=== PATIENT | female | born 1960 | race Two or more races ===

== ENCOUNTER 2017-12-22 12:52 | Outpatient (AMBR) | payer MEDICAID, SELFPAY ==
--- NOTE | 2017-12-22 13:22 | PT.ODAYNRPT ---
PT Outpatient Daily Note Date of Service: December 22, 2017 OP Daily Note Visit Reasons: shoulder pain 2 Outpatient Physical Therapy Treatment Date: 12/22/17 Subjective: Pt's shoulder feels better. Pt notice that she can reach higher overhead. Pt still notice weakness in the shoulder. Pt will like to continue PT to get her shoulder stronger. Objective: Please see flow chart for list of ther ex performed Assessment: improved shoulder AROM, however, still demonstrate weakness within the rotator cuff musculatures leading to difficulty with multiple reps in shoulder flexion and abduction. Pt will continue to benefit from physical therapy. Plan: Continue with PT Length of Time (minutes) of Treatment: 30 Minutes Office Procedures PT Procedures PT Date of Service: 12/22/17 Therapeutic Exercise 30 minutes: Yes
== END 2017-12-23 23:59 ==
LOC: HODPTST 13:34
PROVIDERS: PCP Family Medicine; Referring Provider Family Medicine; Visit Provider Orthopaedic Surgery
DX: M25.511 Pain in right shoulder (principal)
CPT/HCPCS: 97110

== ENCOUNTER 2018-01-06 11:30 | Outpatient (AMBR) | payer MEDICAID, SELFPAY ==
--- NOTE | 2017-12-27 14:28 | PT.ODAYNRPT ---
PT Outpatient Daily Note Date of Service: December 27, 2017 OP Daily Note Visit Reasons: right shoulder Outpatient Physical Therapy Treatment Date: 12/27/17 Subjective: Pt's shoulder feels better. Pt has been able to cook and perform self care with less limitation. Objective: Please see flow chart for list of the ex performed Assessment: tolerate exercises with minimal pain; continue to improve with AROM and less difficulty with added resistance. Plan: Continue with PT Length of Time (minutes) of Treatment: 30 Minutes Office Procedures PT Procedures PT Date of Service: 12/27/17 Therapeutic Exercise 30 minutes: Yes
--- NOTE | 2018-01-06 12:01 | PT.ODS1RPT ---
PT OP Progress/Discharge Note Date of Service: January 06, 2018 Progress Note/DC Note Progress Note/Discharge Note: Progress Note Patient Information Visit Reasons: right shoulder Medical Diagnosis: M75.10 Treatment Dx #1: Right Shoulder Mobility Deficits Treatment Dx #2: Right Shoulder Weakness Service Continue Service or Discharge: Continue Service Certification Date Certification Dates: 01/06/18 to 04/08/18 Status Subjective: Pt mention that her shoulder is doing much better. Pt has been able to reach behind her back, tie her hair, perform self care, and cook with less limitation. Pt still notice shoulder weakness but her movement is much better after the manipulation. Pt will like to continue physical therapy to get her arm stronger. 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 Pt still has difficulty initiating abduction and flexion AROM past shoulder height due to rotator cuff weakness. Pt's overall alternative dispute resolution mediator strength is also improvement these past few weeks allowing her to start light lifting at home with less restriction. Pt has not met set goals yet and will continue to benefit from physical therapy to increase strength, mobility, and work on functional tasks. Plan: Continue with POC/PT and add 12 sessions (2 x wk for 4 wks) Office Procedures PT Procedures PT Date of Service: 12/27/17 Therapeutic Exercise 30 minutes: Yes PT Procedures PT Date of Service: 01/06/18 Therapeutic Exercise 30 minutes: Yes
--- NOTE | 2018-01-06 12:09 | PTNOTE_ITS ---
PT OP Progress/Discharge Note Date of Service: January 06, 2018 Progress Note/DC Note Progress Note/Discharge Note: Progress Note Patient Information Visit Reasons: right shoulder Medical Diagnosis: M75.10 Treatment Dx #1: Right Shoulder Mobility Deficits Treatment Dx #2: Right Shoulder Weakness Service Continue Service or Discharge: Continue Service Certification Date Certification Dates: 01/06/18 to 04/08/18 Status Subjective: Pt mention that her shoulder is doing much better. Pt has been able to reach behind her back, tie her hair, perform self care, and cook with less limitation. Pt still notice shoulder weakness but her movement is much better after the manipulation. Pt will like to continue physical therapy to get her arm stronger. Objective: Right Shoulder AROM Flexion: 158 deg Abduction: 130 deg ER: 65 deg IR: 60 deg Right Shoulder MMTs Flexors: 3/5 Abductors: 3-/5 Internal Rotators: 3+/5 External Rotators: 3/5 HBB: Thumb at T8 Felt Hanger Strength- L: 85 lbs R: 79 lbs Assessment: Pt demonstrate improvement with shoulder mobility and strength allowing her to resume some ADLs, chores, and self care activities with less limitation. Pt still has difficulty initiating abduction and flexion AROM past shoulder height due to rotator cuff weakness. Pt's overall hand ii cutter strength is also improvement these past few weeks allowing her to start light lifting at home with less restriction. Pt has not met set goals yet and will continue to benefit from physical therapy to increase strength, mobility, and work on functional tasks. Plan: Continue with POC/PT and add 12 sessions (2 x wk for 4 wks) Office Procedures PT Procedures PT Date of Service: 12/27/17 Therapeutic Exercise 30 minutes: Yes PT Procedures PT Date of Service: 01/06/18 Therapeutic Exercise 30 minutes: Yes
== END 2018-01-22 23:59 ==
PROVIDERS: PCP Family Medicine; Referring Provider Family Medicine; Visit Provider Orthopaedic Surgery
DX: I10 Essential (primary) hypertension (principal)
CPT/HCPCS: 97110

== ENCOUNTER 2024-10-13 11:22 | Emergency (ER) | payer MEDICAID, SELFPAY ==
[2024-10-13 12:01] VITALS: BP 135/74; PULSE 53; RESP 18; TEMP 36.9; O2SAT 96; BMI 32.1
--- NOTE | 2024-10-13 12:11 | PD.EDRME ---
Rapid Medical Screening Exam RME Arrival date/time: 10/13/24 11:22 This is a 64-year-old female presents to the emergency department with complaints of right lower quadrant abdominal pain x 1 day. +nausea I have greeted and performed a focused initial assessment of this patient. Initial appropriate labs ordered at this time. A comprehensive ED assessment and evaluation of the patient and analysis of all test and completion of medical decision making process will be conducted by additional ED provider. Chief Complaint: Abdominal Pain Time Seen by Provider: 10/13/24 11:41 Vital signs: Vital Signs Temperature 98.5 F 10/13/24 12:01 Pulse Rate 53 L 10/13/24 12:01 Respiratory Rate 18 10/13/24 12:01 Blood Pressure 135/74 H 10/13/24 12:01 Pulse Oximetry (%) 96 10/13/24 12:01 Oxygen Delivery Method Room Air 10/13/24 12:01
[2024-10-13 12:37] LABS: Basophils % (Auto) 0 % (0-2.5); Eosinophils # (Auto) 0.3 Thou/mm3 (0.0-0.5); Eosinophils % (Auto) 4 % (0-10); Hematocrit 42.2 % (36.0-46.0); Immature Granulocytes % (Auto) 1 % (0-0); Immature Granulocytes Auto 0.04 Thou/mm3 (0.00-0.00); Lymphocytes # (Auto) 1.2 Thou/mm3 (1.0-4.8); Lymphocytes % (Auto) 16 % (10-50); Mean Corpuscular HGB Conc 33.2 g/dl (31.0-37.0); Mean Corpuscular Hemoglobin 29.2 pg (25.0-35.0); Mean Corpuscular Volume 88 fL (80-100); Monocytes # (Auto) 0.5 Thou/mm3 (0.0-0.8); Monocytes % (Auto) 7 % (0-12); Neutrophils # (Auto) 5.4 Thou/mm3 (1.8-7.7); Neutrophils % (Auto) 73 % (37-80); Nucleated Red Blood Cell % 0 /100 WBC (0); Platelet Count 252 Thou/mm3 (140-440); RDW Standard Deviation 45.3 fL (36.4-46.3); White Blood Count 7.4 Thou/mm3 (3.6-11.0)
[2024-10-13 12:51] LABS: Prothrombin Time 11.1 Seconds (9.0-12.2)
--- NOTE | 2024-10-13 12:51 | XR_ITS ---
Examination: CT abdomen and pelvis without contrast. Coronal 3-D reconstructions. Sagittal 2-D reconstructions. Date and time of exam:October 13, 2024 1443 hours INDICATIONS: Onset right lower abdominal pain beginning today CTDI: vol (mGy): 13.4 DLP: (mGycm): 836 Technique: Axial images of the abdomen have been obtained, 3 mm slice thickness Intravenous contrast material has not been administered. Low dose protocols were performed. One or more of the following dose reduction techniques were used; automated exposure control, adjustment of the mA and/or KV according to patient size, use of iterative reconstruction technique. Findings: No focal liver or splenic lesion No gallstones No pancreatic or adrenal mass 3 mm, 1 mm, 1 mm nonobstructing left renal calculi Normal appendix coronal image 105 No bowel obstruction No diverticulitis Urinary bladder intact Absent uterus Severe osteopenia with transpedicular lumbar fusion L3-S1 with laminectomies IMPRESSION: Normal appendix Nonobstructing left renal calculi
[2024-10-13 12:55] LABS: Collection Type, Urine Clean Catch
[2024-10-13 12:56] LABS: Alanine Aminotransferase 20 U/L (10-49); Albumin, Serum 4.5 gm/dL (3.4-4.8); Albumin/Globulin Ratio 1.5 (1.2-2.2); Alkaline Phosphatase 75 U/L (46-116); Anion Gap 7 (7-16); Aspartate Amino Transferase 24 U/L (0-34); BUN/Creatinine Ratio 13 Ratio (12-20); Bilirubin,Total 0.9 mg/dL (0.3-1.2); Blood Urea Nitrogen 16 mg/dL (9-23); Calcium 9.8 mg/dL (8.3-10.6); Calcium (Corrected) 9.8 mg/dL (8.5-10.1); Carbon Dioxide 29.1 mMol/L (20.0-31.0); Chloride 105 mMol/L (98-107); Creatinine (Component) 1.2 mg/dL (0.6-1.3); Estimated Creatinine Clearance 59.3 mL/min (>60); Globulin 3.1 gm/dL (2.3-3.5); Glucose 102 mg/dL (74-106); Lipase 59 U/L (12-53); Osmolality,Calculated 282 (275-295); Potassium 4.1 mMol/L (3.4-5.1); Sodium 141 mMol/L (136-145); Total Protein 7.6 gm/dL (5.7-8.2); eGFR 51 See Note
[2024-10-13 13:01] LABS: Bilirubin,Urine Negative (Negative); Blood,Urine Negative (Negative); Clarity,Urine Clear (Clear/Hazy); Color,Urine Lt-Yellow (Lt Yel-Yel); Glucose, Urine Negative (Negative); Ketones,Urine Negative (Negative); Leukocyte Esterase,Urine Positive (Negative); Nitrite,Urine Negative (Negative); PH,Urine 6.5 (5.0-7.0); Protein,Urine Negative (Neg - Trace); RBC,Urine 3 /hpf (0-3); Specific Gravity,Urine 1.018 (1.001-1.035); Squamous Epithelial Cell,Urine 2 /hpf (0-5); Urobilinogen,Urine Negative mg/dL (0.0-1.0); WBC,Urine 17 /hpf (0-5)
--- NOTE | 2024-10-13 16:08 | PD.EDABDPN ---
ED Abdominal Pain RME/HPI General Chief Complaint: Abdominal Pain Stated complaint: RLQ ABD PAIN W/NAUSEA Time seen by provider: 10/13/24 11:41 Arrival date/time: 10/13/24 11:22 RME / HPI RME / HPI narrative: 64-year-old female patient came in for evaluation regarding right lower quadrant pain. Onset of symptoms since early this morning as right lower quadrant pain, went to PCP, and was sent here to rule out appendicitis. Patient's pain is described as dull ache, severity moderate. Also complained of dysuria and frequency. Denies any vomiting denies any fever denies any other complaints. Related Data Home Medications ?Medication ?Instructions ?Recorded ?Confirmed losartan 100 mg tablet 100 mg PO QDAY ##0 07/15/13 05/16/20 albuterol sulfate 90 mcg/actuation 2 puff inhalation BID ##18 06/25/17 05/16/20 aerosol inhaler (Ventolin HFA) carisoprodol 350 mg tablet 1 tab PO QPM #0 tabs 06/25/17 05/16/20 hydralazine 100 mg tablet 100 mg PO TID ##90 06/25/17 05/16/20 levothyroxine 88 mcg tablet 112 mcg PO QDAY ##30 06/25/17 05/16/20 metformin 500 mg tablet 1,000 mg PO BID #0 tabs 06/25/17 05/16/20 (Glucophage) sitagliptin phosphate 100 mg 100 mg PO QDAY 10/14/17 05/16/20 tablet (Januvia) chlorthalidone 25 mg tablet 25 mg PO QDAY 05/16/20 05/16/20 ibuprofen 800 mg tablet 800 mg PO Q6H 05/16/20 05/16/20 liraglutide 0.6 mg/0.1 mL (18 mg/3 18 mg subcut QDAY 05/16/20 05/16/20 mL) subcutaneous pen injector (Victoza 3-Idris) loratadine 10 mg tablet 10 mg PO QDAY 05/16/20 05/16/20 meloxicam 15 mg tablet 15 mg PO QDAY 05/16/20 05/16/20 Previous Rx's ?Medication ?Instructions ?Recorded cefuroxime axetil 500 mg tablet 500 mg PO BID #14 tabs 10/13/24 Allergies Allergy/AdvReac Type Severity Reaction Status Date / Time iodine Allergy Severe Swelling Verified 10/13/24 12:47 of Lip/Tongue/Throat shellfish derived Allergy Verified 10/13/24 12:47 Review of Systems Review of Systems Narrative Review of Systems: Review of system reviewed and within normal limits except mentioned in HPI ED Exam Narrative Physical exam: VITAL SIGNS: Reviewed. GENERAL APPEARANCE: Alert and interactive, follows commands, no acute distress, HEAD AND FACE: Non-traumatic. ENT: PERRL, pink conjunctivitis, eyelid no trauma, Mucous membrane moist. NECK: Supple, nontender, no nuchal rigidity. CHEST: No tenderness, no crepitus, no paradoxical movement, no retractions. LUNGS: Clear, well ventilated, symmetric, no rales, no wheezing, no ronchi, no stridor, good breath sounds bilaterally. HEART: Regular rate, regular rhythm, no murmur, no gallops. ABDOMEN: Soft, positive bowel sounds, nondistended, no guarding, right pelvic tenderness, no rebound, no masses, RECTAL: Deferred. GENITAL: Deferred. NEUROLOGICAL: Gross motor function intact sensory function intact, Appropriate for age. MUSCULOSKELETAL: low back nontender, full range of motion. EXTREMITIES: Nontender, full range of motion. SKIN: Color pink, dry, no rash, no lacerations, no abrasions, no contusions. LYMPHATICS: Deferred. Course Quality Measures none Orders Category Date Time Status CT Screening NOW Care 10/13/24 12:11 Active NPO STAT Care 10/13/24 12:[address] abdomen pelvis wo con Stat Exams 10/13/24 12:51 Completed CBC Stat Lab 10/13/24 12:25 Completed Comprehensive Metabolic Panel Stat Lab 10/13/24 12:25 Completed Lipase Stat Lab 10/13/24 12:25 Completed Prothrombin Time with INR Stat Lab 10/13/24 12:25 Completed Urinalysis Stat Lab 10/13/24 12:33 Completed Vital Signs Vital signs: Vital Signs Temperature 98.5 F 10/13/24 12:01 Pulse Rate 53 L 10/13/24 12:01 Respiratory Rate 18 10/13/24 12:01 Blood Pressure 135/74 H 10/13/24 12:01 Pulse Oximetry (%) 96 10/13/24 12:01 Oxygen Delivery Method Room Air 10/13/24 12:01 Abdominal Pain MDM MDM Narrative MDM Narrative:: 64-year-old female patient came in for evaluation regarding right lower quadrant pain. Onset of symptoms since early this morning as right lower quadrant pain, went to PCP, and was sent here to rule out appendicitis. Patient's pain is described as dull ache, severity moderate. Also complained of dysuria and frequency. Denies any vomiting denies any fever denies any other complaints. Patient's workup today is significant for UTI. CT scan of the abdomen pelvis came back unremarkable. Results discussed with the patient and the family. Patient will be sent home on antibiotic for UTI. Patient appears nontoxic and hemodynamically stable. Patient discharged home and instructed to follow-up with primary care provider in 24 to 48 hours. Instructed to return to the emergency department immediately if worsening of symptoms Patient data External records reviewed:: None Clinical information provided by:: patient Social determinants that could affect healthcare access:: none Patient has the following chronic illnesses:: Hypertension, diabetes mellitus How is presenting disease/condition affected by chronic disease/condition?: exacerbated by Evaluation data The following diagnostics were reviewed and interpreted by me:: lab results and radiology exam(s) Lab and/or radiology exams considered but not ordered:: None Interpretation Summary: See results in MDM Medications / Prescriptions Medications or Prescriptions considered but not ordered:: None Medication administrations:: None Consultations Consultation(s) initiated? (list below): No Diagnosis Differential diagnosis abdominal pain: abdominal pain and acute appendicitis Most likely diagnosis given after review of the tests above:: UTI Admission Indicated Admission indicated?: not indicated Admission Request Was there a request for admission?: No Disposition Plan Disposition Plan: Discharge Discharge Attestation Discharge Attestation: The patient and all family members were given an opportunity to ask questions and understood the discharge instructions. Discharge instructions specifically effects, indications for sooner follow up or return to the emergency department, and the expected course of current diagnosis. Patient condition: Stable Discharge Plan Plan Patient Disposition: HOME (Self Care) Disposition Comment: Stable Prescriptions/Referrals Prescriptions/Med Rec: New cefuroxime axetil 500 mg tablet 500 mg PO BID Qty: 14 0RF No Action losartan 100 mg Tablet 100 mg PO QDAY Qty: 0 carisoprodol 350 MG tablet 1 tab PO QPM Qty: 0 metformin [Glucophage] 500 MG tablet 1,000 mg PO BID Qty: 0 levothyroxine 88 mcg Tablet 112 mcg PO QDAY Qty: 30 hydralazine 100 mg Tablet 100 mg PO TID Qty: 90 albuterol sulfate [Ventolin HFA] 200 PUFF/INH HFA aerosol inhaler 2 puff Inhalation BID Qty: 18 Januvia 100 mg Tablet 100 mg PO QDAY Victoza 3-Idris 0.6 mg/0.1 mL (18 mg/3 mL) Pen Injector 18 mg SUBCUT QDAY ibuprofen 800 mg Tablet 800 mg PO Q6H meloxicam 15 mg Tablet 15 mg PO QDAY chlorthalidone 25 mg Tablet 25 mg PO QDAY loratadine 10 mg Tablet 10 mg PO QDAY Referrals: Adams Palumbo MD [Primary Care Provider] - In 1 week Problem List Clinical Impression: UTI (urinary tract infection) Patient/Caregiver Discharge Instructions Discharge Activity: activity as tolerated Education Materials: Understanding Urinary Tract ... Additional Instructions: Thank you for the opportunity for serving you today. You are stable for discharged . You are advised to: Follow-up with your PCP in 1 to 2 days Return to ED for worsening of symptoms Increase oral fluids Take medication as prescribed Print Language: Gambian Stand Alone Forms: [employer] [employer] Info., Patient Portal Info Letter
== END 2024-10-13 16:34 | disposition home or self-care (01) ==
PROVIDERS: Nurse Practitioner Primary Care; Emergency Provider Emergency Medicine; PCP Family Medicine
DX: N39.0 Urinary tract infection, site not specified (principal); R10.31 Right lower quadrant pain
CPT/HCPCS: 36415; 74176; 80053; 81001; 83690; 85025; 85610; 99284

== ENCOUNTER → 2025-02-16 | Outpatient (CLI) | payer MEDICAID, SELFPAY ==
--- NOTE | 2025-02-16 10:17 | XR_ITS ---
Examination: Hand, left 3 views third digit Technique: Hand AP, oblique, lateral 3 views third digit Date and time of exam: February 16, 2025 at 1039 hours INDICATIONS: Left hand third digit pain today FINDINGS: Moderate osteopenia. No fracture or dislocation. No cortical bone destruction. No opaque foreign body IMPRESSION: No fracture or cortical bone destruction
== END | disposition home or self-care (01) ==
LOC: CDIM 09:52
PROVIDERS: PCP Family Medicine; Referring Provider Family Medicine; Visit Provider Family Medicine
DX: M65.332 Trigger finger, left middle finger (principal)
CPT/HCPCS: 73130

== ENCOUNTER → 2025-03-02 | Outpatient (CLI) | payer MEDICAID, SELFPAY ==
--- NOTE | 2025-03-02 11:30 | XR_ITS ---
Examination: Abdomen sonogram, complete Date and time of exam: March 12, 2025 1118 hours INDICATIONS: Diagnosis acute cystitis several months. Technique: Multiple real-time grayscale transabdominal sonographic images of the abdomen have been obtained. Findings: 6 mm gallbladder sludge ball Normal gallbladder wall Normal common bile duct 0.2 cm Pancreatic head 2.4 cm Aorta not enlarged. Liver 11.4 cm fatty infiltration Normal hepatopedal portal venous flow Patent IVC Right kidney 11.4 cm cortex 1.6 cm Left kidney 11.0 cm cortex 2.5 cm Spleen 10.1 cm IMPRESSION: 6 mm gallbladder sludge ball
== END | disposition home or self-care (01) ==
LOC: CDIM 11:02
PROVIDERS: PCP Family Medicine; Referring Provider Family Medicine; Visit Provider Family Medicine
DX: N30.00 Acute cystitis without hematuria (principal); K82.8 Other specified diseases of gallbladder
CPT/HCPCS: 76700

== ENCOUNTER → 2025-05-10 | Outpatient (CLI) | payer MEDICARE, MEDICAID, SELFPAY ==
--- NOTE | 2025-05-10 10:30 | XR_ITS ---
Examination: CT abdomen without intravenous contrast. Coronal 2-D reconstructions. Sagittal 2-D reconstructions. Date and time of exam: May 10, 2025, 1030 hours, comparison October 13, 2024 INDICATIONS: Right side abdominal pain beginning November 2024, history left renal calculi October 13, 2024 CTDI: vol (mGy): 14.2 DLP: (mGycm): 524 Technique: Axial images of the abdomen have been obtained, 3 mm slice thickness, without intravenous contrast 2-D sagittal coronal reconstructions Low dose protocols were performed. One or more of the following dose reduction techniques were used; automated exposure control, adjustment of the mA and/or KV according to patient size, use of iterative reconstruction technique. Findings: No focal liver or splenic lesions No gallstones No pancreatic or adrenal mass 3 mm 2 mm 2 mm posterior left renal calculi Moderate left renal scar formation No hydronephrosis Aortic calcification no aneurysmal dilatation 8 mm fat-containing umbilical hernia No bowel obstruction Lumbar fusion L3-S1 with laminectomies, anatomic alignment Advanced degenerative disc disease above the fusion site L2-L3 IMPRESSION: Nonobstructive left renal calculi, no hydronephrosis or ureteral calculi
== END | disposition home or self-care (01) ==
PROVIDERS: PCP Family Medicine; Referring Provider Family Medicine; Visit Provider Family Medicine
DX: N20.0 Calculus of kidney (principal)
CPT/HCPCS: 74150

== ENCOUNTER → 2025-06-06 | Outpatient (CLI) | payer MEDICARE, MEDICAID, SELFPAY ==
--- NOTE | 2025-06-06 09:53 | XR_ITS ---
EXAMINATION: PA lateral chest 2 views TECHNIQUE: Upright PA lateral chest 2 views Date and time: June 06, 2025, 1016 hours, comparison 04/20/2024 INDICATIONS: Diagnosis hypertension coughing 2 months. FINDINGS: Minimal prominence left ventricle No pneumonia or pulmonary edema. Prominent osteopenia IMPRESSION: No active disease
== END | disposition home or self-care (01) ==
PROVIDERS: PCP Family Medicine; Referring Provider Family Medicine; Visit Provider Family Medicine
DX: R05.9 Cough, unspecified (principal)
CPT/HCPCS: 71046

== ENCOUNTER 2025-06-29 05:40 | Day surgery (SDC) | payer MEDICARE, MEDICAID, SELFPAY ==
[2025-06-28 12:51] VITALS: BMI 34.7
[2025-06-28 13:34] LABS: Basophils # (Auto) 0.0 Thou/mm3 (0.0-0.2); Basophils % (Auto) 0 % (0-2.5); Eosinophils # (Auto) 0.2 Thou/mm3 (0.0-0.5); Eosinophils % (Auto) 2 % (0-10); Hematocrit 39.8 % (36.0-46.0); Hemoglobin 13.2 g/dL (12.0-16.0); Immature Granulocytes Auto 0.03 Thou/mm3 (0.00-0.00); Lymphocytes # (Auto) 2.2 Thou/mm3 (1.0-4.8); Lymphocytes % (Auto) 30 % (10-50); Mean Corpuscular HGB Conc 33.2 g/dl (31.0-37.0); Mean Corpuscular Hemoglobin 29.9 pg (25.0-35.0); Mean Corpuscular Volume 90 fL (80-100); Monocytes # (Auto) 0.5 Thou/mm3 (0.0-0.8); Monocytes % (Auto) 7 % (0-12); Neutrophils # (Auto) 4.3 Thou/mm3 (1.8-7.7); Neutrophils % (Auto) 60 % (37-80); Nucleated Red Blood Cell # 0.00 Thou/mm3 (0.00-0.00); Nucleated Red Blood Cell % 0 /100 WBC (0); Platelet Count 260 Thou/mm3 (140-440); RDW Standard Deviation 47.1 fL (36.4-46.3); Red Blood Count 4.41 Miln/mm3 (4.00-5.20); White Blood Count 7.3 Thou/mm3 (3.6-11.0)
[2025-06-28 14:53] LABS: INR 1.0 (0.9-1.3); Partial Thromboplastin Time 27.5 Seconds (22.0-36.0); Prothrombin Time 10.2 Seconds (9.0-12.2)
[2025-06-28 14:57] LABS: Alanine Aminotransferase 21 U/L (10-49); Albumin, Serum 4.8 gm/dL (3.4-4.8); Albumin/Globulin Ratio 1.6 (1.2-2.2); Alkaline Phosphatase 79 U/L (46-116); Anion Gap 8 (7-16); Aspartate Amino Transferase 26 U/L (0-34); BUN/Creatinine Ratio 19 Ratio (12-20); Bilirubin,Total 0.8 mg/dL (0.3-1.2); Blood Urea Nitrogen 19 mg/dL (9-23); Calcium 9.9 mg/dL (8.3-10.6); Calcium (Corrected) 9.9 mg/dL (8.5-10.1); Carbon Dioxide 29.9 mMol/L (20.0-31.0); Chloride 106 mMol/L (98-107); Creatinine (Component) 1.0 mg/dL (0.6-1.3); Estimated Creatinine Clearance 68.4 mL/min (>60); Globulin 3.0 gm/dL (2.3-3.5); Glucose 93 mg/dL (74-106); Osmolality,Calculated 289 (275-295); Potassium 4.2 mMol/L (3.4-5.1); Sodium 144 mMol/L (136-145); Total Protein 7.8 gm/dL (5.7-8.2); eGFR > 60 See Note
[2025-06-29] VITALS (8 sets, daily range): BP systolic 132–161; BP diastolic 55–82; PULSE 54–71; RESP 12–20; TEMP 36.3–36.9; O2SAT 96–100; BMI 34.4
[2025-06-29] MEDS: RINGERS LACTATED 1000 ML 1,000 ML 20 ML IV (06:34)
--- NOTE | 2025-06-29 07:25 | SUR.PREOP ---
Patient expressed gratitude for prayer before their procedure.
--- NOTE | 2025-06-29 07:28 | SUR.PREOP ---
Patient expressed gratitude for prayer before their procedure.
--- NOTE | 2025-06-29 08:24 | PD.SUROPNT ---
Date of Procedure 06/29/25 Pre Op Diagnosis Trigger finger third digit left hand Post Op Diagnosis Same Procedure Release of trigger finger third digit left hand Findings Refer dictation Procedure Description The patient was given general endotracheal anesthesia. Once satisfactory anesthesia was achieved a tourniquet was placed on left upper arm. Following that part was thoroughly prepped and draped. After using Esmarch the tourniquet pressure was raised to 250 mmHg. Intravenous antibiotics was given at the time of anesthesia Skin incision was made just proximal to metacarpal phalange joint crease of the third digit. The length of the incision was about 1 inch or less. Deeper dissection was carried out. With blunt and sharp dissection the flexor sheath of the digit was exposed. Care was taken not to damage the distal nerve and or vessel. With the help of knife a gentle stab incision was made in the flexor sheath and then with the help of scissors it was extended proximally and distally. The sheath was quite thickened. The first dank was incised. A strip of flexor sheath was then excised. Wound was irrigated with antibiotic solution every 3 to 4 minutes Closure was done with the help of 3-0 Prolene in an interrupted fashion. After cleaning the wound with hydrogen peroxide solution a sterile dressing was applied. Tourniquet pressure was released. Patient tolerated procedure well. Estimated blood loss 1 mL Anesthesia GETA Pathology / specimen None Estimated Blood Loss 1 Surgeon Gutierrez Calzada MD Surgical Staff Operation Date: 06/29/25 07:30 Case Staff Anesthesiologist: Siva Orona
--- NOTE | 2025-06-29 08:27 | SUR.PHASEI ---
0827: Pt. AAOx4, vitals stable, breathing unlabored, no complaint of pain or nausea, dressing to left hand CDI, no active bleed noted, bilateral brachial pulses strong and regular, cap refill to bilateral hands less than 3 seconds, pt. able to move bilateral hands, report received from Sariah MATHEW and MD Orona.
--- NOTE | 2025-06-29 08:50 | ESHP_ITS ---
RE: KACEY VILLEGAS : 1960 DATE OF ADMISSION: 06/28/2025 The patient came to my office on 06/28 in [facility] for detailed preop history and physical examination. HISTORY OF PRESENT COMPLAINT: Patient presented to me earlier with history of pain and locking of the 3rd digit of the left hand. This is going on for long period of time. After locking, it snaps before opening up. It is excruciatingly painful. Patient's quality of life, activities of daily living are affected. Patient graded intensity of discomfort and/or pain to be 7/10 to 8/10. PAST MEDICAL HISTORY: Patient has a history of diabetes mellitus, high blood pressure, and stroke. No history of asthma, seizures. PAST SURGICAL HISTORY: Includes rotator cuff repair in 2019. DRUG HISTORY: The patient is on amlodipine, carvedilol, hydralazine, Januvia, metformin, and Ozempic. The patient is also on levothyroxine, tramadol, fenofibrate, and aspirin. Patient stopped aspirin about 10 days or 2 weeks back. ALLERGIES: NIL KNOWN. FAMILY HISTORY AND SOCIAL HISTORY: Patient denies smoking and drinking. Is not working. PHYSICAL EXAMINATION: GENERAL: Rather normal built lady. VITAL SIGNS: Pulse is 58 per minute. Blood pressure 142/76. NECK: Soft, supple. No mass felt. Trachea is centrally placed. CARDIOVASCULAR SYSTEM: First and second heart sounds normal. No murmur heard. RESPIRATORY SYSTEM: Bilateral vesicular breath sounds. CHEST: Clear. ABDOMEN: Soft, scaphoid. No mass felt. Bowel sounds present. BREASTS: Not indicated in this case. RECTAL: Patient is advised to see the family physician for rectal examination. EXTREMITIES: Left hand examination revealed tenderness at the base of the 3rd digit on the flexor side. After flexing the digit while extending it snaps and opens with excruciating pain. Patient clinically has a trigger finger. Since patient is symptomatic and conservative treatment did not help her, therefore release of trigger finger was discussed and advised. With the help of pictures and diagram and supervisor beater room, it was explained to her in detail. Risks, benefits, limitations were explained. Risks with anesthesia include but not limited to reaction to anesthetic agents, cardiac arrest, or rarely it might be fatal. Risk with operation includes infection and if that happens patient may need further surgical procedure. Other risks include delayed healing, wound dehiscence, etc. Sometimes there is risk to the nerve and/or vessels. No guarantee is given regarding outcome of the procedure and/or relief of symptoms. Patient was sent for surgical clearance as well and has been cleared for surgery. Surgery booked for 06/29/2025. Appropriate laboratory work is done. DT: 08:32:22 TT: 08:49:00 Ref: [id number] - TID: [id number]
--- NOTE | 2025-06-29 09:27 | SUR.PHASEII ---
0927: Pt. AAOx4, vitals stable, breathing unlabored, no complaint of pain or nausea, dressing to left hand CDI, no active bleed noted, bilateral brachial pulses strong and regular, cap refill to bilateral hands less than 3 seconds, pt. able to move bilateral hands, pt. tolerated sips of juice well, gave discharge instructions to the pt. and her son using her son as the wire drawing die maker, both verbalized understanding and had no further questions. Pt. left with all personal belongings.
== END 2025-06-29 09:27 | disposition home or self-care (01) ==
LOC: S2EX 05:59
PROVIDERS: Anesthesiology; PCP Family Medicine; Referring Provider Orthopaedic Surgery; Visit Provider Orthopaedic Surgery
PROC: (CPT 26055; principal; 2025-06-29 07:30)
DX: M65.332 Trigger finger, left middle finger (principal)
CPT/HCPCS: 26055; 36415; 80053; 85025; 85610; 85730; A4649; J0690; J1100; J1580; J2371; J2704; J2765; J3010; J3490; J7120; J0665